=== PATIENT | female | born 1995 | race Two or more races ===

== ENCOUNTER → 2018-05-10 | Outpatient (CLI) | payer OTHER ==
[2016-11-03 11:00] VITALS: BP 92/55
[~2018-05-10] MED LIST: IBUP-1060 PO
--- NOTE | 2018-05-13 15:28 | RAD ---
Obstetrical ultrasound, 05/10/2018: HISTORY: size/date discrepancy No previous imaging is available at this time for comparison purposes. There is a single intrauterine fetus in a breech orientation. The biparietal diameter measures 4.3 cm compatible with a gestational age of nearly 19 weeks. The average gestational age based on all of the measurements is 19 weeks and 2 days yielding a sonographic EDC of 10/02/2018. Normal activity and heart motion were seen. A four-chamber heart is evident demonstrating a heart rate of 149 bpm. Fluid is identified in the bladder and stomach. The visualized portions of the spine and kidneys are unremarkable. There is a three-vessel umbilical cord demonstrating a normal cord insertion site. A normal amount of amniotic fluid is evident. The cervix was not clearly defined, however, its length was estimated at 5.4 cm.The placenta lies anteriorly extending laterally to the left. It is low lying with its inferior margin lying approximately 1 cm anterior to the cervix. IMPRESSION: Single viable intrauterine fetus of 19-20 weeks gestational age as described above. Electronically signed by: Davion Darby MD (05/13/2018 3:23 PM) [facility]
== END | disposition home or self-care (01) ==
LOC: US 14:03
PROVIDERS: ATTEND Obstetrics & Gynecology
DX: O26.842 Uterine size-date discrepancy, second trimester (principal); Z3A.20 20 weeks gestation of pregnancy
CPT/HCPCS: 76805

== ENCOUNTER 2018-06-03 10:37 | Emergency (ER) | payer OTHER ==
[~2018-06-03] VITALS: Ht 157.5 cm; Wt 52.2 kg
[2018-06-03 12:21] LABS: INFLUENZA A PATIENT NEGATIVE (NEGATIVE); INFLUENZA B PATIENT NEGATIVE (NEGATIVE)
--- NOTE | 2018-06-03 12:41 | PHYS DOC ---
Past Medical History Past Medical History: No Pertinent History Past Surgical History: No Surgical History Alcohol Use: None Drug Use: None Adult General Chief Complaint Chief Complaint: URI symptoms, [facility] HPI Patient is a 23 year old female who presents with complaining of urinary symptom. Patient is at 25 weeks of gestation complaining of subjective fever and chills, nasal congestion, sore throat, cough and shortness of breath, generalized body ache for the last 4 days. Patient denies abdominal pain or vaginal bleeding. Patient has chronic vaginal discharge. Patient states her daughter was diagnosed with positive flu last week and she is concern for having flu. Patient is only Hebrew speaking and history was taking with ironer machine assisting via phone. Review of Systems Review of Systems Constitutional: Reports fever and chills Eyes: Denies change in visual acuity, redness, or eye pain [] HENT: Reports nasal congestion and sore throat Respiratory: Reports cough and shortness of breath Cardiovascular: No additional information not addressed in HPI [] GI: Denies abdominal pain, nausea, vomiting, bloody stools or diarrhea [] : Denies dysuria or hematuria [] Musculoskeletal: Denies back pain or joint pain [] Integument: Denies rash or skin lesions [] Neurologic: Denies headache, focal weakness or sensory changes [] Endocrine: Denies polyuria or polydipsia [] All other systems were reviewed and found to be within normal limits, except as documented in this note. Allergies Allergies Allergies Coded Allergies Type Severity Reaction Last Updated Verified No Known Drug Allergies 10/30/16 No Physical Exam Physical Exam Constitutional: Well developed, well nourished, mild distress, non-toxic appearance. [] HENT: Normocephalic, atraumatic, bilateral external ears normal, oropharynx moist, and showed erythema, no oral exudates, nose normal. [] Eyes: PERRLA, EOMI, conjunctiva normal, no discharge. [] Neck: Normal range of motion, no tenderness, supple, no stridor. [] Cardiovascular:Heart rate regular rhythm, no murmur [] Lungs & Thorax: Bilateral breath sounds clear to auscultation [] Abdomen: Bowel sounds normal, soft, no tenderness, no masses, no pulsatile masses, gravid abdomen without tenderness or contraction, heart states was detected. [] Skin: Warm, dry, no erythema, no rash. [] Back: No tenderness, no CVA tenderness. [] Extremities: No tenderness, no cyanosis, no clubbing, ROM intact, no edema. [] Neurologic: Alert and oriented X 3, normal motor function, normal sensory function, no focal deficits noted. [] Psychologic: Affect normal, judgement normal, mood normal. [] Current Patient Data Vital Signs Vital Signs Date Time Temp Pulse Resp B/P (MAP) Pulse Ox O2 Delivery O2 Flow Rate FiO2 06/03/18 12:59 96 14 104/65 (78) 98 Room Air 06/03/18 11:17 97.9 97.9 Lab Values Laboratory Tests Test 06/03/18 11:50 Influenza Type A Antigen Negative (NEGATIVE) Influenza Type B Antigen Negative (NEGATIVE) EKG EKG [] Radiology/Procedures Radiology/Procedures [] Course & Med Decision Making Course & Med Decision Making Pertinent Labs reviewed. (See chart for details) discharge: I've spoken with the patient and/or caregivers. I've explained the patient's condition, diagnosis and treatment plan based on information available to me at this time. I've answered the patient's and/or caregivers questions and addressed any concerns. The patient and/or caregivers have a good understanding the patient's diagnosis, condition and treatment plan as can be expected at this point. Vital signs have been stabilized. The patient's condition is stable for discharge from the emergency department. The patient will pursue further outpatient evaluation with her primary care provider or other designated consulting physician as outlined in the discharge instructions. Patient and/or caregivers are agreeable to this plan of care and follow-up instructions have been explained in detail. The patient and/or caregivers have received these instructions in written format and expressed understanding of these discharge instructions. The patient and her caregivers are aware that if any significant change in condition or worsening of symptoms should prompt him to immediately return to this of the closest emergency department. If an emergent department is not readily available I would encourage him to call 911. Bethany Disclaimer Bethany Disclaimer This electronic medical record was generated, in whole or in part, using a voice recognition dictation system. Departure Departure Impression: Primary Impression: Upper respiratory infection Additional Impression: Currently Disposition: 01 HOME, SELF-CARE (at 1247) Condition: STABLE Referrals: NO PCP (PCP) Patient Instructions: ABCs of , Cough, Adult, Upper Respiratory Infection, Adult Additional Instructions: Drink plenty of liquids Follow-up with your primary care physician in 3-5 days Return to ER if not getting better May take [id number] Benadryl as needed for cough Scripts Azithromycin (ZITHROMAX) 250 Mg Tablet 1 PKG PO UD for infection, #1 PKG Prov: PABLO PETERSON MD 06/03/18 Albuterol Sulfate (PROAIR HFA INHALER) 8.5 Gm Hfa.aer.ad 2 PUFF INH PRN Q6HRS PRN for SHORTNESS OF BREATH, #1 INHALER 0 Refills Prov: PABLO PETERSON MD 06/03/18 Problem Qualifiers PABLO PETERSON MD Jun 03, 2018 12:41
[2018-06-03] MEDS ORDERED: ALBU2.5V8 INH (12:49)
[2018-06-03] MEDS ORDERED: AZIT250T PO (12:49)
[2018-06-03 12:59] VITALS: BP 104/65
== END 2018-06-03 13:06 | disposition home or self-care (01) ==
LOC: ER 10:37
DX: O99.512 Diseases of the respiratory system complicating pregnancy, second trimester (principal); J06.9 Acute upper respiratory infection, unspecified; M79.10 Myalgia, unspecified site; Z3A.25 25 weeks gestation of pregnancy
CPT/HCPCS: 87804; 99283

== ENCOUNTER 2018-06-26 23:51 | Observation (INO) | payer OTHER ==
[~2018-06-26 23:51] MED LIST changes: +ALBU2.5V8 INH; +AZIT250T PO
[2018-06-26] MEDS ORDERED: IV RINGERS,LACTATED 1000ML 1,000 ML IV SCH (23:55)
[2018-06-27 00:13] LABS: BILIRUBIN,URINE NEGATIVE (NEG); CLARITY,URINE CLEAR; COLOR,URINE YELLOW; NITRITE,URINE NEGATIVE (NEG); PROTEIN,URINE NEGATIVE (NEG-TRACE); UROBILINOGEN,URINE 0.2 mg/dL (0.2 mg/dL)
[2018-06-27 00:21] LABS: AMPHETAMINE/METHAMPHETAMINE NEG (NEG); BARBITURATES NEG (NEG); BENZODIAZEPINES NEG (NEG); CANNABINOIDS NEG (NEG); COCAINE NEG (NEG); METHADONE NEG (NEG); OPIATES NEG (NEG); PHENCYCLIDINE NEG (NEG)
[2018-06-27 00:27] LABS: BACTERIA,URINE FEW /HPF (0-FEW); RBC,URINE 0 /HPF (0-2); SQUAMOUS EPITHELIAL CELL,UR FEW /LPF
[2018-06-27 00:35] LABS: AMNIO PT NEGATIVE
== END 2018-06-27 00:55 | disposition home or self-care (01) ==
LOC: 3 SO LND 23:51
PROVIDERS: ADMIT Obstetrics & Gynecology; ATTEND Obstetrics & Gynecology
DX: O98.812 Other maternal infectious and parasitic diseases complicating pregnancy, second trimester (principal); O26.893 Other specified pregnancy related conditions, third trimester; J02.9 Acute pharyngitis, unspecified; R05 Cough; O42.912 Preterm premature rupture of membranes, unspecified as to length of time between rupture and onset of labor, second trimester; Z3A.26 26 weeks gestation of pregnancy
CPT/HCPCS: 36415; 80307; 81001; 84112; 87086; G0379

== ENCOUNTER 2020-11-24 10:43 | Emergency (ER) | payer SELFPAY ==
[~2020-11-24] VITALS: Ht 144.8 cm; Wt 54.5 kg
[2020-11-24] MEDS ORDERED: CEPH500C PO (12:39)
--- NOTE | 2020-11-24 12:39 | ED.ADGEN ---
Past Medical History Past Medical History: No Pertinent History Past Surgical History: No Surgical History Smoking Status: Never Smoker Alcohol Use: None Drug Use: None General Adult EDM: Chief Complaint: INSECT BITE HPI: HPI: Patient is a 25 year old female coming in for painful red rash to her inner right leg around her knee for the past 2 days. Patient states that she thought she was stung or bitten by an insect 2 days ago when she was hanging out outside. Says the rash is continued to get worse. No systemic complaints. No history of abscesses or MRSA Review of Systems: Review of Systems: All other systems within normal limits except for as noted in the HPI Allergies: Allergies: Allergies Coded Allergies Type Severity Reaction Last Updated Verified No Known Drug Allergies 10/30/16 No Physical Exam: PE: Constitutional: Well developed, well nourished, no acute distress, non-toxic appearance. [] HENT: Normocephalic, atraumatic, bilateral external ears normal, nose normal. [] Eyes: PERRLA, conjunctiva normal, no discharge. [] Neck: No rigidity, supple, no stridor. [] Cardiovascular: Regular rate and rhythm, brisk cap refill [] Lungs & Thorax: Non labored symmetric respirations, no tachypnea or respiratory distress [] Abdomen: Soft, nondistended. Skin: Warm, dry, induration and erythemia to right inner leg near knee, no joint effusion Back: Unremarkable Extremities: No deformities, range of motion grossly intact, no lower extremity edema [] Neurologic: Alert and oriented X 3, no focal deficits noted. [] Psychologic: Affect normal, judgement normal, mood normal. [] EKG: EKG: [] Heart Score: C/O Chest Pain: No Risk Factors: Risk Factors: DM, Current or recent (<one month) smoker, HTN, HLP, family history of CAD, obesity. Risk Scores: Score 0 - 3: 2.5% MACE over next 6 weeks - Discharge Home Score 4 - 6: 20.3% MACE over next 6 weeks - Admit for Clinical Observation Score 7 - 10: 72.7% MACE over next 6 weeks - Early Invasive Strategies Radiology/Procedures: Radiology/Procedures: [] Course & Med Decision Making: Course & Med Decision Making Pertinent Labs and Imaging studies reviewed. (See chart for details) [] Dragon Disclaimer: Dragon Disclaimer: This electronic medical record was generated, in whole or in part, using a voice recognition dictation system. Departure Departure Impression: Primary Impression: Cellulitis of right leg Disposition: HOME / SELF CARE / HOMELESS Condition: STABLE Referrals: NO PCP (PCP) Patient Instructions: Cellulitis Scripts Cephalexin (KEFLEX) 500 Mg Capsule 1 CAP PO TID for antibiotic for 7 Days, #21 CAP Prov: GUANACO RUANO MD 11/24/20 GUANACO RUANO MD Nov 24, 2020 12:39
[2020-11-24] MEDS ORDERED: cefTRIAXone IM 1 GM VIAL IM ONE (12:45)
[2020-11-24 13:15] VITALS: BP 106/68
== END 2020-11-24 13:16 | disposition home or self-care (01) ==
LOC: ER 10:43
DX: L03.115 Cellulitis of right lower limb (principal)
CPT/HCPCS: 96372; 99283; J0696